=== PATIENT | female | born 1990 | race Caucasian/White ===

== ENCOUNTER 2017-02-28 09:32 | Emergency (ER) | payer SELFPAY ==
[~2017-02-28] VITALS: Ht 172.7 cm; Wt 65.8 kg
[2017-02-28] MEDS ORDERED: ONDA4TAB10 SL (10:10)
--- NOTE | 2017-02-28 10:12 | PHYS DOC ---
Past Medical History Past Medical History: No Pertinent History Past Surgical History: No Surgical History Alcohol Use: None Drug Use: None Adult General Chief Complaint Chief Complaint: BACK PAIN - NO INJURY HPI HPI 27-year-old female presenting to the emergency department with lumbar back pain. She describes it as a sharp shooting pain that radiates down the left leg. It is worse with walking. Alleviated with rest. She denies any fecal or urinary incontinence. She denies any fevers chills or history of IV drug use. She has a numbness down the left leg but denies any weakness. Review of systems is negative for perineal paresthesias urinary or fecal incontinence. Negative for fevers chills. All other review of systems is negative unless otherwise noted in history of present illness. ED course: 27-year-old female presenting to the emergency department today with low back pain. Pertinent physical exam findings showed 2+ reflexes in the knees. 5 out of 5 strength in the legs. Patient denies any urinary or fecal incontinence. IV pain medication used to control the patient's pain along with nausea medication. On reexamination she was feeling better and subsequently discharged home with nausea medication in order to help keep down her morphine that was previously prescribed. Review of Systems Review of Systems SEE ABOVE. Current Medications Current Medications Current Medications Medications (Trade) Dose Ordered Sig/Bozena Start Time Stop Time Status Last Admin Dose Admin Hydromorphone HCl (Dilaudid) 0.5 mg PRN Q30MIN PRN 02/28/17 10:15 02/28/17 10:40 0.5 MG Ondansetron HCl (Zofran) 4 mg 1X ONCE 02/28/17 10:30 02/28/17 10:31 DC 02/28/17 10:38 4 MG Allergies Allergies Allergies Coded Allergies Type Severity Reaction Last Updated Verified dihydroergotamine Allergy Intermediate 02/28/17 Yes Physical Exam Physical Exam See above Constitutional: Well developed, well nourished, no acute distress, non-toxic appearance. [] HENT: Normocephalic, atraumatic, bilateral external ears normal, oropharynx moist, no oral exudates, nose normal. [] Eyes: PERRLA, EOMI, conjunctiva normal, no discharge. [] Neck: Normal range of motion, no tenderness, supple, no stridor. [] Cardiovascular:Heart rate regular rhythm, no murmur [] Lungs & Thorax: Bilateral breath sounds clear to auscultation [] Abdomen: Bowel sounds normal, soft, no tenderness, no masses, no pulsatile masses. [] Skin: Warm, dry, no erythema, no rash. [] Back: No tenderness, no CVA tenderness. [] Extremities: No tenderness, no cyanosis, no clubbing, ROM intact, no edema. [] Neurologic: Alert and oriented X 3, normal motor function, normal sensory function, no focal deficits noted. [] Psychologic: Affect normal, judgement normal, mood normal. [] Current Patient Data Vital Signs Vital Signs Date Time Temp Pulse Resp B/P (MAP) Pulse Ox O2 Delivery O2 Flow Rate FiO2 02/28/17 10:40 18 96 Room Air 02/28/17 09:46 98.6 91 145/85 (105) 98.6 Lab Values Laboratory Tests Test 02/28/17 09:43 02/28/17 10:30 POC Urine HCG, Qualitative Hcg negative (Negative) Urine Collection Type Unknown Urine Color Yellow Urine Clarity Clear Urine pH 7.5 Urine Specific [place] 1.015 Urine Protein Negative mg/dL (NEG-TRACE) Urine Glucose (UA) Negative mg/dL (NEG) Urine Ketones (Stick) Negative mg/dL (NEG) Urine Blood Negative (NEG) Urine Nitrite Negative (NEG) Urine Bilirubin Negative (NEG) Urine Urobilinogen Dipstick 0.2 mg/dL (0.2 mg/dL) Urine Leukocyte Esterase Negative (NEG) Urine RBC Occ /HPF (0-2) Urine WBC Occ /HPF (0-4) Urine Squamous Epithelial Cells Mod /LPF Urine Bacteria 0 /HPF (0-FEW) Urine Mucus Marked /LPF EKG EKG [] Radiology/Procedures Radiology/Procedures [] Course & Med Decision Making Course & Med Decision Making Pertinent Labs and Imaging studies reviewed. (See chart for details) [] Dragon Disclaimer Dragon Disclaimer This electronic medical record was generated, in whole or in part, using a voice recognition dictation system. Departure Departure Impression: Primary Impression: Lumbar back pain Disposition: HOME, SELF-CARE Condition: STABLE Referrals: NO PCP (PCP) REBECCA PORTER MD Patient Instructions: Back Exercises, Back Pain, Adult Additional Instructions: Thank you for allowing us to participate in your care today. Followup with your primary care physician in 3 days if your symptoms do not improve. Call your Primary Doctor tomorrow and inform them of your visit today. If you do not have a primary care provider you can ask for a list of our primary care providers. Return to the emergency department you have any new or concerning findings. This should be evaluated by the primary care physician and any necessary consulting services for continued management within a few days after discharge. Return to emergency room if you have any new or concerning symptoms including but not limited to fever, chills, nausea, vomiting, intractable pain, any new rashes, chest pain, shortness of air, uncontrolled bleeding, difficulty breathing, and/or vision loss. You may have been prescribed medication that can change in your level of thinking and ability to operate machinery. These medications include hydrocodone and Ativan. Also, Benadryl has been known to do this as well. Be sure to check with your pharmacist and ask if the medications you've prescribed can affect your level of consciousness. I recommend not operating heavy machinery or driving while on medication such as these. Scripts Ondansetron (ZOFRAN ODT) 4 Mg Tab.rapdis 1 TAB SL PRN Q8HRS Y for NAUSEA, #6 TAB Prov: CHANDA HARDEN MD 02/28/17 CHANDA HARDEN MD Feb 28, 2017 10:12
[2017-02-28] MEDS ORDERED: ONDANSETRON PF 4 MG/2 ML VIAL. IV ONE (10:30)
[2017-02-28] MEDS: HYDROmorphone 2 MG/ML VIAL IV PRN ×2 (10:40→11:44)
[2017-02-28 10:53] LABS: BILIRUBIN,URINE NEGATIVE (NEG); GLUCOSE,URINE NEGATIVE (NEG); NITRITE,URINE NEGATIVE (NEG); PH,URINE 7.5; PROTEIN,URINE NEGATIVE (NEG-TRACE); UROBILINOGEN,URINE 0.2 mg/dL (0.2 mg/dL)
[2017-02-28 11:05] LABS: BACTERIA,URINE 0 /HPF (0-FEW); RBC,URINE OCC /HPF (0-2); SQUAMOUS EPITHELIAL CELL,UR MOD /LPF; WBC,URINE OCC /HPF (0-4)
[2017-02-28 11:10] VITALS: BP 124/73
== END 2017-02-28 11:48 | disposition home or self-care (01) ==
LOC: ER 09:32
DX: M54.5 Low back pain (principal); R20.0 Anesthesia of skin; Z88.1 Allergy status to other antibiotic agents
CPT/HCPCS: 81001; 81025; 96374; 96375; 96376; 99284; J1170; J2405

== ENCOUNTER 2020-07-10 15:32 | Emergency (ER) | payer SELFPAY ==
[~2020-07-10] VITALS: Ht 172.7 cm; Wt 70.0 kg
[~2020-07-10 15:32] MED LIST: ONDA4TAB10 SL
[2020-07-10] MEDS ORDERED: methylPREDNISolone SOD SUCC PF 125 MG/2 ML VIAL. IV ONE (15:45)
[2020-07-10] MEDS ORDERED: FAMOTIDINE 20 MG/2 ML VIAL IVP ONE (15:45)
[2020-07-10] MEDS ORDERED: diphenhydrAMINE 50 MG/ML VIAL IVP ONE (15:45)
[2020-07-10] MEDS ORDERED: EPINEPHrine 1 MG/ML VIAL IM ONE (15:45)
[2020-07-10] MEDS ORDERED: IV NORMAL SALINE 1000ML BAG 1,000 ML IV ONE (15:45)
[2020-07-10] MEDS ORDERED: FAMO-63 PO (18:01)
[2020-07-10] MEDS ORDERED: EPIPEN 2-P0.3 MG/0.3 IM (18:01)
[2020-07-10] MEDS ORDERED: PRED20TA PO (18:01)
--- NOTE | 2020-07-10 18:02 | PHYS DOC ---
Past Medical History Past Medical History: No Pertinent History Past Surgical History: No Surgical History Smoking Status: Never Smoker Alcohol Use: Occasionally Drug Use: None General Adult EDM: Chief Complaint: ALLERGIC REACTION HPI: HPI: Patient is a 30 year old female who was brought here by EMS from home due to allergic reaction. Patient ate a [employer] sandwich about 45 minutes ago, she started feeling itchy and have trouble swallowing, so she gave herself epinephrine injection in her right thigh and called EMS to take him here for evaluation. Patient has history of allergic reaction in the past that was yesterday epinephrine pen. At this time patient says she still feels scratchy in her throat, denies any swelling or itching anywhere. Review of Systems: Review of Systems: Constitutional: Denies fever or chills. [] Eyes: Denies change in visual acuity. [] HENT: Denies nasal congestion or sore throat. Positive for throat swelling and itchy. Respiratory: Denies cough or shortness of breath. [] Cardiovascular: Denies chest pain or edema. [] GI: Denies abdominal pain, nausea, vomiting, bloody stools or diarrhea. [] : Denies dysuria. [] Musculoskeletal: Denies back pain or joint pain. [] Integument: Denies rash. [] Neurologic: Denies headache, focal weakness or sensory changes. [] Endocrine: Denies polyuria or polydipsia. [] Lymphatic: Denies swollen glands. [] Psychiatric: Denies depression or anxiety. [] Heart Score: Risk Factors: Risk Factors: DM, Current or recent (<one month) smoker, HTN, HLP, family history of CAD, obesity. Risk Scores: Score 0 - 3: 2.5% MACE over next 6 weeks - Discharge Home Score 4 - 6: 20.3% MACE over next 6 weeks - Admit for Clinical Observation Score 7 - 10: 72.7% MACE over next 6 weeks - Early Invasive Strategies Current Medications: Current Medications Medications (Trade) Dose Ordered Sig/Bozena Start Time Stop Time Status Last Admin Dose Admin Diphenhydramine HCl (Benadryl) 50 mg 1X ONCE 07/10/20 15:45 07/10/20 15:46 DC 07/10/20 15:54 50 MG Epinephrine HCl (Adrenalin) 0.3 mg 1X ONCE 07/10/20 15:45 07/10/20 15:46 DC 07/10/20 15:51 0.3 MG Famotidine (Pepcid Vial) 20 mg 1X ONCE 07/10/20 15:45 07/10/20 15:46 DC 07/10/20 15:54 20 MG Methylprednisolone Sodium Succinate (SOLU-Medrol 125MG VIAL) 125 mg 1X ONCE 07/10/20 15:45 07/10/20 15:46 DC 07/10/20 15:53 125 MG Sodium Chloride 1,000 ml @ 1,000 mls/hr 1X ONCE 07/10/20 15:45 07/10/20 16:44 DC 07/10/20 15:50 1,000 MLS/HR Allergies: Allergies: Allergies Coded Allergies Type Severity Reaction Last Updated Verified dihydroergotamine Allergy Intermediate 02/28/17 Yes ketorolac Allergy Mild ITCHING 07/10/20 Yes Physical Exam: PE: Constitutional: Well developed, well nourished, no acute distress, non-toxic appearance. [] HENT: Normocephalic, atraumatic, bilateral external ears normal, oropharynx moist, no oral exudates, nose normal. [] Eyes: PERRLA, EOMI, conjunctiva normal, no discharge. [] Neck: Normal range of motion, no tenderness, supple, no stridor. [] Cardiovascular:Heart rate regular rhythm, no murmur [] Lungs & Thorax: Bilateral breath sounds clear to auscultation [] Abdomen: Bowel sounds normal, soft, no tenderness, no masses, no pulsatile masses. [] Skin: Warm, dry, no erythema, no rash. [] Back: No tenderness, no CVA tenderness. [] Extremities: No tenderness, no cyanosis, no clubbing, ROM intact, no edema. [] Neurologic: Alert and oriented X 3, normal motor function, normal sensory function, no focal deficits noted. [] Psychologic: Affect normal, judgement normal, mood normal. [] Current Patient Data: Vital Signs: Vital Signs Date Time Temp Pulse Resp B/P (MAP) Pulse Ox O2 Delivery O2 Flow Rate FiO2 07/10/20 16:35 98 16 137/83 (101) 98 Room Air 07/10/20 15:32 98.1 98.1 EKG: EKG: [] Radiology/Procedures: Radiology/Procedures: [] Course & Med Decision Making: Course & Med Decision Making Pertinent Labs and Imaging studies reviewed. (See chart for details) Patient is a 30-year-old female who was evaluated in the ER due to allergic reaction to food. Patient was given medication in the ER, she feels much better, no rash, no swelling or angioedema observed in the ER, patient feel much better. Patient will be discharged home with prescription for epinephrine injection EpiPen Dragon Disclaimer: Dragon Disclaimer: This electronic medical record was generated, in whole or in part, using a voice recognition dictation system. Departure Departure Impression: Primary Impression: Allergic reaction Disposition: DC HOME SELF CARE/HOMELESS Condition: IMPROVED Referrals: NO PCP (PCP) follow up with your doctor on Monday for reevaluation Patient Instructions: Food Allergy Additional Instructions: Thank you for visiting our Emergency Department. We appreciate you trusting us with your care. If any additional problems come up don't hesitate to return to visit us. Please follow up with your primary care provider so they can plan additional care if needed and know about the problem that you had. If symptoms worsen come back to the Emergency Department. Any concerning symptoms that start such as chest pain, shortness of air, weakness or numbness on one side of the body, running high fevers or any other concerning symptoms return to the ER. Take 25 mg of Benadryl every 4 hours as needed for itching or swelling or rash. Scripts Famotidine (PEPCID) 20 Mg Tablet 20 MG PO HS for 5 Days, #5 TAB Prov: NICKY THOMAS DO 07/10/20 Prednisone (PREDNISONE) 20 Mg Tablet 1 TAB PO DAILY, #5 TAB Prov: NICKY THOMAS DO 07/10/20 Epinephrine (EPIPEN 2-TIMOTHY) 0.3 Mg/0.3 Ml Auto.injct 1 SYR IM ONCE for 1 Day, #1 PACKET 0 Refills Prov: NICKY THOMAS DO 07/10/20 NICKY THOMAS DO Jul 10, 2020 18:02
[2020-07-10 18:05] VITALS: BP 95/54
== END 2020-07-10 18:15 | disposition home or self-care (01) ==
LOC: ER 15:32
DX: T78.40XA Allergy, unspecified, initial encounter (principal); Z88.6 Allergy status to analgesic agent; Z88.8 Allergy status to other drugs, medicaments and biological substances; Z91.018 Allergy to other foods
CPT/HCPCS: 96361; 96372; 96374; 96375; 99285; J0171; J1200; J2930; J3490; J7030

== ENCOUNTER → 2021-08-24 | Emergency (ER) | payer OTHER ==
[~2021-08-24] MED LIST changes: +EPIPEN 2-P0.3 MG/0.3 IM; +FAMO-63 PO; +PRED20TA PO
== END | disposition left against medical advice (07) ==
LOC: ER 12:54
DX: U07.1 COVID-19 (principal); R04.2 Hemoptysis; Z53.21 Procedure and treatment not carried out due to patient leaving prior to being seen by health care provider